=== PATIENT | male | born 1995 | race Caucasian/White ===

== ENCOUNTER 2016-08-26 16:10 | Emergency (ER) | payer BC, OTHER ==
[~2016-08-26] VITALS: Ht 167.6 cm; Wt 61.4 kg
[~2016-08-26 16:10] MED LIST: ALLERGY MED; ATARAX 25MG25 MG/TAB PO; CEPHALEXIN500 M1 PO; CERAVE FACIAL M89 ML TP; CIPRO 500MG TA500 MG PO; CIPRO HC OTIC S10 ML OT; FLONASE NASAL S16 GM NS; HCTZ12.5TAB PO; INHALER; MEDROL 4MG DOSPA4 MG PO; NO HOME MEDICATIONS; NORCO 325 MG-51 TAB PO; PROCARDIA XL 6060 MG PO; TEMOVATE0.05% TP; TRIAMCINOLONE A15 G3 TP
[2016-08-26 16:11] VITALS: TEMP 98.6
[2016-08-26 17:55] LABS: BASO % 0.2 % (0.0-2.0); GRAN # 3.6 (1.4-6.5); GRAN % 74.3 % (42.2-75.2); HEMATOCRIT 40.5 % (42.0-52.0); HEMOGLOBIN 14.3 g/dl (13.5-18.0); LYMPH # 0.7 (1.2-3.4); LYMPH % 14.8 % (20.0-51.0); MEAN CELL VOLUME 85 fl (80.0-100.0); MEAN CORPUSCULAR HEMOGLOBIN 30 pg (27.0-31.0); MEAN CORPUSCULAR HGB CONC 35 g/dl (33.0-37.0); MEAN PLATELET VOLUME 10.4 fl (7.4-10.4); MONO # 0.5 (0.1-0.6); MONO % 10.5 % (1.7-9.3); PLATELET COUNT 201 K/mm3 (130-400); RED BLOOD COUNT 4.78 M/mm3 (4.20-5.60); REDCELL DISTRIBUTION WIDTH-CV 13.2 % (11.5-14.5); WHITE BLOOD COUNT 4.9 K/mm3 (4.8-10.8)
[2016-08-26 18:08] LABS: ADJUSTED CALCIUM 9.4 mg/dL (8.4-10.2); ALBUMIN 4.3 gm/dL (3.5-5.0); BILIRUBIN,TOTAL 0.9 mg/dL (0.0-1.0); CALCIUM 9.6 mg/dL (8.4-10.2); CREATININE, serum 1.09 mg/dL (0.66-1.25); POTASSIUM 3.9 mmol/L (3.4-5.0); TOTAL PROTEIN 7.2 gm/dL (6.4-8.2)
[2016-08-26] MEDS ORDERED: CARAFATE 1GM1 G PO (19:16)
[2016-08-26] MEDS ORDERED: PROTONIX 40MG T40 MG PO (19:16)
[2016-08-26 19:29] VITALS: BP 130/78; PULSE 76
== END 2016-08-26 19:31 | disposition home or self-care (01) ==
LOC: COL.ER 16:10
PROVIDERS: Emergency Medicine
DX: R10.13 Epigastric pain (principal); R11.10 Vomiting, unspecified
CPT/HCPCS: C9113; J2060; J7030

== ENCOUNTER → 2016-08-29 | Outpatient (CLI) | payer BC, OTHER ==
[~2016-08-29] MED LIST changes: +CARAFATE 1GM1 G PO; +PROTONIX 40MG T40 MG PO
== END ==
LOC: COL.RAD 09:19
DX: N26.9 Renal sclerosis, unspecified (principal); Q63.1 Lobulated, fused and horseshoe kidney; R10.12 Left upper quadrant pain; R10.11 Right upper quadrant pain

== ENCOUNTER 2020-10-16 14:39 | Emergency (ER) | payer BC ==
[2020-10-16 14:40] VITALS: TEMP 97.8
[2020-10-16 16:21] LABS: BASO % 0.6 % (0.0-2.0); EOS % 0.6 % (0-4.0); GRAN # 2.7 (1.4-6.5); GRAN % 55.6 % (42.2-75.2); HEMATOCRIT 42.3 % (42.0-52.0); HEMOGLOBIN 14.1 g/dl (13.5-18.0); LYMPH # 1.6 (1.2-3.4); LYMPH % 33.4 % (20.0-51.0); MEAN CELL VOLUME 89 fl (80.0-100.0); MEAN CORPUSCULAR HEMOGLOBIN 30 pg (27.0-31.0); MEAN CORPUSCULAR HGB CONC 33 g/dl (33.0-37.0); MONO # 0.5 (0.1-0.6); MONO % 9.8 % (1.7-9.3); PLATELET COUNT 203 K/mm3 (130-400); RED BLOOD COUNT 4.76 M/mm3 (4.20-5.60); REDCELL DISTRIBUTION WIDTH-CV 12.8 % (11.5-14.5)
[2020-10-16 16:28] LABS: ALBUMIN 3.7 gm/dL (3.5-5.0); BILIRUBIN,TOTAL 0.4 mg/dL (0.0-1.0); CALCIUM 8.2 mg/dL (8.4-10.2); CREATININE, serum 0.94 (0.66-1.25); TOTAL PROTEIN 6.2 gm/dL (6.4-8.2)
[2020-10-16 16:49] VITALS: BP 129/87; PULSE 80
== END 2020-10-16 16:52 | disposition home or self-care (01) ==
LOC: COL.ER 14:39
PROVIDERS: Nurse Practitioner
DX: R55 Syncope and collapse (principal); E16.2 Hypoglycemia, unspecified; Z88.8 Allergy status to other drugs, medicaments and biological substances; Z91.040 Latex allergy status
CPT/HCPCS: J7030